=== PATIENT | female | born 1950 ===

== ENCOUNTER 2020-09-07 10:19 | Outpatient (CLI) | payer MEDICARE, MEDICAID ==
[~2020-09-07] VITALS: Ht 165.1 cm; Wt 72.6 kg
[2020-09-07 10:44] VITALS: BP 130/70
[2020-09-07] MEDS ORDERED: SYNTHROID100 MCG ORAL (13:54)
[2020-09-07] MEDS ORDERED: SIMVASTATIN10 MG ORAL (13:54)
[2020-09-07] MEDS ORDERED: BENAZEPRIL HCL20 MG ORAL (13:54)
[2020-09-07] MEDS ORDERED: AMLODIPINE BESY10 MG ORAL (13:54)
[2020-09-07] MEDS ORDERED: HYDROCHLOROTHIA25 MG ORAL (13:54)
--- NOTE | 2020-09-10 08:14 | Consultation ---
DATE OF CONSULTATION: 09/09/2020 CHIEF COMPLAINT: Referral for screening colonoscopy. PAST MEDICAL HISTORY: 1. Hypertension. 2. Hypercholesteremia. PAST SURGICAL HISTORY: None. MEDICATIONS: See medication reconciliation list. ALLERGIES: No known drug allergies. FAMILY HISTORY: Significant for father had hypertension. Mother had hypertension and diabetes. Brother had diabetes. SOCIAL HISTORY: The patient occasionally drinks alcohol. Denies any tobacco or drug abuse. REVIEW OF SYSTEMS: A 12-point review of systems was negative. PHYSICAL EXAMINATION: VITAL SIGNS: Temperature 97.3, blood pressure 130/70, pulse is 78, respirations 20. HEENT: Normocephalic and atraumatic. Sclerae anicteric. NECK: Supple. No evidence of obvious lymphadenopathy. CARDIOVASCULAR: Regular rate and rhythm. Plus S1, S2. LUNGS: Clear to auscultation bilaterally. ABDOMEN: Positive bowel sounds. Soft and nontender. No rebound. No guarding. No peritoneal sign. EXTREMITIES: No cyanosis, no clubbing, no edema. ASSESSMENT AND PLAN: This is a 70-year-old patient referred for screening colonoscopy. The patient was instructed about risks and benefits of procedure. Prep was explained to the patient. We will schedule her as soon as authorization is obtained. Josafat Carcamo M.D. DR: Victoriano JOB#: [id number] CC:
== END 2020-09-07 12:19 | disposition home or self-care (01) ==
LOC: PAN 10:19
DX: Z00.00 Encounter for general adult medical examination without abnormal findings (principal); E78.00 Pure hypercholesterolemia, unspecified; I10 Essential (primary) hypertension
CPT/HCPCS: 99203